=== PATIENT | male | born 1945 | race Caucasian/White ===

== ENCOUNTER 2018-02-06 13:27 | Emergency (ER) | payer MEDICARE, SELFPAY ==
[2018-02-06] VITALS (10 sets, daily range): BP systolic 110–140; BP diastolic 60–99; PULSE 72–89; RESP 14–22; TEMP 36.7–36.9; O2SAT 98–100
--- NOTE | 2018-02-06 | PATH_ITS ---
Note [facility] Accession Number: [id number] TESTS RESULT FLAG UNITS REF RANGE LAB Clinician Provided Cytology Information No. of containers..01 Other (Miscellaneous) 01 ABDOMINAL FLUID DIAGNOSIS: 02 ABDOMINAL FLUID NEGATIVE FOR MALIGNANT CELLS. MESOTHELIAL CELLS ARE PRESENT. Pathologist ICD10: 02 R18.8 02 Gonzalo Vuong MD, Pathologist NPI- [id number] Ruben Dubon, Grid Trimmer ([facility]) 01 15 CC, YELLOW, CLEAR /LCS FLAG LEGEND: L-Low Normal,H-High Normal,LL-Alert Low,HH-Alert High <-Panic Low,>-Panic High,A-Abnormal,AA-Critical Abnormal Performed at: 01 =Z [facility] [address], [place] [address] Sujit Suggs MD, 02 LWA [facility] [address] [place] [phone] Daniel Black MD, Performed at: 01 [facility] [address], [place], [place] [id number] MD Sujit Suggs MD Phone: [phone]
[2018-02-06 14:10] LABS: Add Manual Diff / Slide Review NO; Basophils Percent Auto 0.7 % (0-2); Eosinophils Percent Auto 1.9 % (2-4); Hematocrit 37.9 % (41-53); Hemoglobin 12.7 g/dL (13.5-17.5); Lymphocytes Percent Auto 15.8 % (25-40); Mean Corpuscular HGB Conc 33.4 % (30-36); Mean Corpuscular Hemoglobin 38.9 PG (26-34); Mean Corpuscular Volume 116.4 fL (80-100); Neutrophils Absolute Auto 6700 /uL (3000-5900); Neutrophils Percent Auto 63.6 % (50-75); Platelet Count 308 X10^3/uL (150-400); Red Blood Cell Count 3.26 X10^6/uL (4.5-5.9); Red Cell Distribution Width 14.6 % (11.6-14.8); White Blood Cell Count 10.6 X10^3/uL (4.5-11.0)
[2018-02-06 14:13] LABS: INR 1.5 (0.9-1.3); Prothrombin Time 15.8 SECONDS (10.1-12.7)
[2018-02-06 14:15] LABS: PTT Partial Thromboplastin Tim 33 SECONDS (26.4-36.2)
[2018-02-06 14:18] LABS: Alanine Aminotransferase 42 IU/L (21-72); Albumin 2.9 g/dL (3.5-5.0); Albumin Globulin Ratio 0.8 (1.0-2.8); Alkaline Phosphatase 223 U/L (38-126); Aspartate Aminotransferase 134 IU/L (17-59); Bilirubin Total 6.1 mg/dL (0.2-1.3); Blood Urea Nitrogen 6 mg/dL (9-20); Calcium 8.8 mg/dL (8.4-10.2); Carbon Dioxide 24 mmol/L (22-32); Chloride 97 mmol/L (98-107); Estimated Glomerular Filt Rate > 60.0 mL/min (>60); Globulin 3.7 g/dL (1.7-4.1); Glucose 107 mg/dL (80-110); HEMOLYSIS < 15 (0-50); Lipase 143 U/L (23-300); Potassium 3.7 mmol/L (3.4-5.1); Sodium 132 mmol/L (137-145); Total Protein 6.6 g/dL (6.3-8.2)
[2018-02-06 14:25] LABS: Macrocytosis 3+
--- NOTE | 2018-02-06 14:27 | ED.ABDPAIN ---
HPI - Abdominal Pain General Chief Complaint: Abdominal Pain Stated Complaint: INFLATED STOMACH/R TESTICLE Time Seen by Provider: 02/06/18 13:45 Source: patient and family Mode of arrival: ambulatory Limitations: no limitations History of Present Illness HPI narrative: Patient presents to the ED with his and a chief complaint of worsening abdominal distention in the absence of pain, yellowing of his eyes, and ongoing swollen right testicle for 6-7 weeks. Patient denies fever nor chills, he is not dizzy but is weak and has decreased appetite. Patient states the abdominal distension and yellowing has happened over the past week. He has a longstanding history of alcohol abuse but denies any known diagnosis of cirrhosis, liver failure or gallbladder disease. MD complaint: abdominal pain Related Data Home Medications Medication Instructions Recorded Confirmed aspirin 81 mg PO DAILY 02/06/18 02/06/18 atorvastatin 10 mg PO DAILY 02/06/18 02/06/18 lisinopril 40 mg PO DAILY 02/06/18 02/06/18 metoprolol succinate 50 mg PO DAILY 02/06/18 02/06/18 Previous Rx's Medication Instructions Recorded lorazepam [Ativan] See Label Instructions .ROUTE 02/06/18 .COMPLEX PRN #19 tab Allergies Allergy/AdvReac Type Severity Reaction Status Date / Time codeine Allergy Intermediate Wheezing Verified 02/06/18 14:03 Review of Systems Review of Systems All systems reviewed & are unremarkable except as noted in HPI and below Constitutional Denies chills, Denies fever(s), Denies lethargy, Denies weakness and Reports weight loss Eyes Denies change in vision, Denies eye discharge, Denies irritation and Denies loss of vision ENT Ears, Nose, Mouth, and Throat: Denies change in voice, Denies neck pain and Denies sore throat Cardiovascular Denies chest pain, Denies irregular heart rhythm, Denies lightheadedness, Denies palpitations, Reports dyspnea, Denies dyspnea on exertion and Denies orthopnea Respiratory Denies cough, Reports dyspnea, Denies dyspnea on exertion and Denies wheezing Gastrointestinal Gastrointestinal: Denies abdominal pain, Reports bloating, Denies change in bowel habits, Denies diarrhea, Denies nausea and Denies vomiting Genitourinary Denies hematuria, Denies flank pain, Denies urinary incontinence and Denies urinary urgency Comments: Scrotal swelling Musculoskeletal Denies neck pain Integumentary/Breasts Denies pruritus, Denies erythema, Denies rash, Denies wounds and Reports jaundice Neurologic Denies confusion, Denies loss of vision and Denies weakness Psychiatric Denies anxiety, Denies confusion, Denies depression, Denies homicidal ideation and Denies suicidal ideation Endocrine Denies palpitations Hematologic/Lymphatic Denies easy bruising Allergic/Immunologic Denies wheezing PFSH Medical History Alcoholism (Acute) Diverticulitis (Acute) High cholesterol (Acute) Hypertension (Acute) Melanoma (Acute) Osteoporosis (Acute) Pancreatic cancer (Acute) Prostate CA (Acute) Social History Smoking Status: Former smoker Exam Narrative Exam Narrative: 72-year-old male chronically ill and in mild distress Initial Vital Signs Initial Vital Signs: Vital Signs Temperature 98.1 F 02/06/18 13:36 Pulse Rate 86 02/06/18 13:36 Respiratory Rate 18 02/06/18 13:36 Blood Pressure 140/81 H 02/06/18 13:36 Pulse Oximetry 100 02/06/18 13:36 Const General: in distress Nutritional Appearance: cachectic and malnourished Orientation: alert, awake and oriented x3 HENMT Head: atraumatic and other (Temporal wasting) Ears: external ears normal and TM's normal bilaterally Nose: external nose normal and No nasal discharge Face and sinus: sinuses nontender, face symmetric, no sinus tenderness and No dry mucous membranes Mouth: oral mucosae normal and moist mucous membranes Teeth and gingiva: dentition normal Throat: tonsils normal and uvula midline Eyes General: appearance normal, both eyes and all related structures Visual Rodriguez: normal visual rodriguez by confrontation Eyelids: eyelids normal Sclera: scleral abnormality (Jaundice bilaterally) Pupils: PERRL Chest Chest: normal inspection of the chest Resp Effort & Inspection: normal respiratory effort, able to speak in complete sentences, no respiratory distress and no use of accessory muscles Auscultation: clear to auscultation bilaterally, no rales, no rhonchi and no wheezes Cardio Rate: regular rate Rhythm: regular rhythm Heart Sounds: no click, no gallops, no murmurs and no rubs Pulses: normal peripheral pulses GI Inspection: distended (With fluid wave) Percussion: fluid wave Scrotum: edematous and hydrocele Back/Spine/Pelvis Back: No CVA tenderness Cervical Spine: cervical ROM normal and No pain with cervical ROM Thoracic/Lumbar Spine: thoracic and lumbar spine normal to inspection Neuro General: alert, awake and oriented x3 Cognition: normal cognition Speech: speech normal Extrem General: full ROM, no clubbing, cyanosis or edema, no pedal edema and no calf tenderness Course Orders Ordered: ED Orders 02/06/18 13:25 Complete Blood Count AUTO DIFF Stat Comprehensive Metabolic Panel Stat Lipase Stat Partial Thromboplastin Time Stat Prothrombin Time INR Stat 02/06/18 14:20 Lactate (Lactic Acid) Stat 02/06/18 15:08 US abdomen complete Stat US scrotum Stat 02/06/18 16:30 US paracentesis Stat 02/06/18 18:00 Albumin Body Fluid Stat Ammonia (NH3) Stat Amylase Body Fluid Stat Cell Count w Diff Body Fluid Stat LDH Body Fluid Stat 02/06/18 19:08 Lactate 4HR (Lactic Acid Rflx) Stat 02/06/18 19:20 Urinalysis and Microscopic Stat 02/06/18 19:29 Body Fluid Culture Stat Discontinued Medications Sodium Chloride (Normal Saline 0.9%) 500 mls @ 1,000 mls/hr IV BOLUS ONE Stop: 02/06/18 19:53 Last Admin: 02/06/18 19:29 Dose: 1,000 mls/hr Reevaluation(s) Reevaluation #1: Patient was sent to ultrasound to have an ultrasound-guided paracentesis by Radiology. 5 L of fluid were removed and on his returned the patient felt tremendous improvement in his abdominal discomfort and ability to breathe. Consultations Consultation #1: Patient has had healthcare provided at [facility] in [place] in the past and requested I talk with GI or hepatology therefore follow-up. I spoke with the on-call nurses' registry director this evening whom suggest the patient contact the hepatology Clinic tomorrow and suggests [phone] Vital Signs - 8 hr 02/06/18 13:36 02/06/18 14:01 02/06/18 14:33 Temperature 98.1 F Pulse Rate 86 84 72 Respiratory Rate 18 22 14 Blood Pressure 140/81 H Blood Pressure [Left Arm] 130/76 H 117/63 Pulse Oximetry 100 99 98 02/06/18 15:15 02/06/18 16:06 02/06/18 16:30 Temperature Pulse Rate 85 89 86 Respiratory Rate 14 14 Blood Pressure Blood Pressure [Left Arm] 110/99 H 132/70 H 127/69 H Pulse Oximetry 99 98 99 02/06/18 17:30 02/06/18 18:00 02/06/18 19:30 Temperature Pulse Rate 84 89 89 Respiratory Rate Blood Pressure Blood Pressure [Left Arm] 137/73 H 120/67 126/64 H Pulse Oximetry 100 100 100 MDM - Abdominal Pain Differential Diagnosis Differential diagnosis: Likely abdominal pain, gastroenteritis, pancreatitis, small bowel obstruction and other (Ascites) Medical Records Attestation: I reviewed the patient's medical records. Lab Data Attestation: I reviewed the patient's lab results. Result diagrams: 02/06/18 13:25 02/06/18 13:25 Lab Results 02/06/18 02/06/18 02/06/18 Range/Units 13:25 13:25 13:25 WBC 10.6 (4.5-11.0) X10^3/uL RBC 3.26 L (4.5-5.9) X10^6/uL Hgb 12.7 L (13.5-17.5) g/dL Hct 37.9 L (41-53) % MCV 116.4 H (80-100) fL MCH 38.9 H (26-34) PG MCHC 33.4 (30-36) % RDW 14.6 (11.6-14.8) % Plt Count 308 (150-400) X10^3/uL Neut % (Auto) 63.6 (50-75) % Lymph % (Auto) 15.8 L (25-40) % [place] % (Auto) 18.0 H (3-14) % Eos % (Auto) 1.9 L (2-4) % Baso % (Auto) 0.7 (0-2) % Neut # (Auto) 6700 H (6506-9772) /uL RBC Morphology Not Reportable Macrocytosis 3+ H PT 15.8 H (10.1-12.7) SECONDS INR 1.5 H (0.9-1.3) APTT 33 (26.4-36.2) SECONDS Sodium 132 L (137-145) mmol/L Potassium 3.7 (3.4-5.1) mmol/L Chloride 97 L (98-107) mmol/L Carbon Dioxide 24 (22-32) mmol/L BUN 6 L (9-20) mg/dL Creatinine 0.60 L (0.66-1.25) mg/dL Estimated GFR > 60.0 (>60) mL/min BUN/Creatinine Ratio 10.0 (6-22) Glucose 107 (80-110) mg/dL Lactate (0.7-2.1) mmol/L Calcium 8.8 (8.4-10.2) mg/dL Total Bilirubin 6.1 H (0.2-1.3) mg/dL AST 134 H (17-59) IU/L ALT 42 (21-72) IU/L Alkaline Phosphatase 223 H (38-126) U/L Ammonia (9-30) umol/L Total Protein 6.6 (6.3-8.2) g/dL Albumin 2.9 L (3.5-5.0) g/dL Globulin 3.7 (1.7-4.1) g/dL Albumin/Globulin Ratio 0.8 L (1.0-2.8) Lipase 143 (23-300) U/L Urine Color Urine Appearance Urine pH (4.5-8.0) Ur Specific [place] (1.000-1.035) Urine Protein (Negative) Urine Glucose (UA) (Normal) g/dL Urine Ketones (NEGATIVE) Urine Occult Blood (Negative) Urine Nitrate (Negative) Urine Bilirubin (NEGATIVE) Urine Urobilinogen (0.2) E.U./dL Ur Leukocyte Esterase (NEGATIVE) Fluid Color Fluid Appearance Fluid RBC /uL Fld Tot Nucleated Cell /uL Fluid Polynuclear WBCs % Fluid Mononuclear WBCs % Fluid Eosinophils % Body Fluid Clot Fluid Albumin g/dL Fluid LDH U/L Fluid Amylase IU/L 02/06/18 02/06/18 02/06/18 Range/Units 14:20 18:00 18:00 WBC (4.5-11.0) X10^3/uL RBC (4.5-5.9) X10^6/uL Hgb (13.5-17.5) g/dL Hct (41-53) % MCV (80-100) fL MCH (26-34) PG MCHC (30-36) % RDW (11.6-14.8) % Plt Count (150-400) X10^3/uL Neut % (Auto) (50-75) % Lymph % (Auto) (25-40) % [place] % (Auto) (3-14) % Eos % (Auto) (2-4) % Baso % (Auto) (0-2) % Neut # (Auto) (4062-8298) /uL RBC Morphology Macrocytosis PT (10.1-12.7) SECONDS INR (0.9-1.3) APTT (26.4-36.2) SECONDS Sodium (137-145) mmol/L Potassium (3.4-5.1) mmol/L Chloride (98-107) mmol/L Carbon Dioxide (22-32) mmol/L BUN (9-20) mg/dL Creatinine (0.66-1.25) mg/dL Estimated GFR (>60) mL/min BUN/Creatinine Ratio (6-22) Glucose (80-110) mg/dL Lactate 3.4 H (0.7-2.1) mmol/L Calcium (8.4-10.2) mg/dL Total Bilirubin (0.2-1.3) mg/dL AST (17-59) IU/L ALT (21-72) IU/L Alkaline Phosphatase (38-126) U/L Ammonia (9-30) umol/L Total Protein (6.3-8.2) g/dL Albumin (3.5-5.0) g/dL Globulin (1.7-4.1) g/dL Albumin/Globulin Ratio (1.0-2.8) Lipase (23-300) U/L Urine Color Urine Appearance Urine pH (4.5-8.0) Ur Specific [place] (1.000-1.035) Urine Protein (Negative) Urine Glucose (UA) (Normal) g/dL Urine Ketones (NEGATIVE) Urine Occult Blood (Negative) Urine Nitrate (Negative) Urine Bilirubin (NEGATIVE) Urine Urobilinogen (0.2) E.U./dL Ur Leukocyte Esterase (NEGATIVE) Fluid Color Yellow Fluid Appearance Clear Fluid RBC < 100 /uL Fld Tot Nucleated Cell 311 /uL Fluid Polynuclear WBCs 6 % Fluid Mononuclear WBCs 82 % Fluid Eosinophils 0 % Body Fluid Clot No clots present Fluid Albumin < 1.0 g/dL Fluid LDH 189 U/L Fluid Amylase < 30 IU/L 02/06/18 02/06/18 02/06/18 Range/Units 18:00 19:08 19:20 WBC (4.5-11.0) X10^3/uL RBC (4.5-5.9) X10^6/uL Hgb (13.5-17.5) g/dL Hct (41-53) % MCV (80-100) fL MCH (26-34) PG MCHC (30-36) % RDW (11.6-14.8) % Plt Count (150-400) X10^3/uL Neut % (Auto) (50-75) % Lymph % (Auto) (25-40) % [place] % (Auto) (3-14) % Eos % (Auto) (2-4) % Baso % (Auto) (0-2) % Neut # (Auto) (5549-9315) /uL RBC Morphology Macrocytosis PT (10.1-12.7) SECONDS INR (0.9-1.3) APTT (26.4-36.2) SECONDS Sodium (137-145) mmol/L Potassium (3.4-5.1) mmol/L Chloride (98-107) mmol/L Carbon Dioxide (22-32) mmol/L BUN (9-20) mg/dL Creatinine (0.66-1.25) mg/dL Estimated GFR (>60) mL/min BUN/Creatinine Ratio (6-22) Glucose (80-110) mg/dL Lactate 1.6 (0.7-2.1) mmol/L Calcium (8.4-10.2) mg/dL Total Bilirubin (0.2-1.3) mg/dL AST (17-59) IU/L ALT (21-72) IU/L Alkaline Phosphatase (38-126) U/L Ammonia < 9.0 L (9-30) umol/L Total Protein (6.3-8.2) g/dL Albumin (3.5-5.0) g/dL Globulin (1.7-4.1) g/dL Albumin/Globulin Ratio (1.0-2.8) Lipase (23-300) U/L Urine Color [place] Urine Appearance Slightly cloudy Urine pH 5.0 (4.5-8.0) Ur Specific [place] >=1.030 H (1.000-1.035) Urine Protein 2+ H (Negative) Urine Glucose (UA) Trace (Normal) g/dL Urine Ketones 1+ H (NEGATIVE) Urine Occult Blood Trace-lysed (Negative) Urine Nitrate Positive (Negative) Urine Bilirubin 3+ H (NEGATIVE) Urine Urobilinogen 2.0 H (0.2) E.U./dL Ur Leukocyte Esterase Trace H (NEGATIVE) Fluid Color Fluid Appearance Fluid RBC /uL Fld Tot Nucleated Cell /uL Fluid Polynuclear WBCs % Fluid Mononuclear WBCs % Fluid Eosinophils % Body Fluid Clot Fluid Albumin g/dL Fluid LDH U/L Fluid Amylase IU/L Imaging Data US - abdomen: Radiologist's impression: PROCEDURE: US ABDOMEN COMPLETE INDICATIONS: new onset ascites, jaundice TECHNIQUE: Real-time scanning was performed of the abdominal and retroperitoneal organs, with image documentation. COMPARISON: None. FINDINGS: Liver: Liver has a diffusely increased echotexture which typically represents fatty infiltration; however, finding is nonspecific and other etiologies including hepatic cirrhosis can have a similar appearance. Please correlate with clinical and laboratory findings. Gallbladder: Tumefactive sludge noted in the gallbladder. No gallbladder wall thickening. No pericholecystic fluid. No sonographic Liang sign. Biliary ducts: Intrahepatic bile ducts are non-dilated. Extrahepatic bile duct is obscured by bowel gas and cannot be evaluated. Pancreas: Obscured by bowel gas and cannot be evaluated. Spleen: Obscured by bowel gas and cannot be evaluated Kidneys: Kidneys are normal in size and echotexture. Right kidney measures 10.7 cm long; left kidney measures 11.2 cm long. No hydronephrosis or nephrolithiasis. No solid masses. Aorta: Not visualized secondary to bowel gas and cannot be evaluated. Iliacs: Obscured by bowel gas and cannot be evaluated IVC: Obscured by bowel gas and cannot be evaluated Miscellaneous: Large amount of free fluid noted in all 4 quadrants of the abdomen. There is a 6.1 x 2.7 x 2.5 cm solid peritoneal wall mass. IMPRESSION: 1. Large amount of ascites. 2. Echogenic liver. Finding typically represents fatty infiltration; however, finding is nonspecific and correlation with clinical and laboratory findings is recommended to exclude other etiologies including hepatic cirrhosis. 3. 6.1 x 2.7 x 3.5 cm peritoneal wall mass. Recommend CT scan of the abdomen and pelvis with contrast for further evaluation. 4. Nonvisualization of the extrahepatic biliary tree, the pancreas, the spleen, the iliac vasculature, the aorta and the intrahepatic IVC secondary to bowel gas. Dictated by: Nadia Baron MD, PhD on 02/06/2018 at 16:54 Approved by: Nadia Baron MD, PhD on 02/06/2018 at 17:00 PROCEDURE: US PARACENTESIS INDICATIONS: 72 year-old male with ascites. TECHNIQUE: The indications, alternatives, benefits, risks, and complications of the procedure were explained to the patient. Written informed consent was obtained and placed in the chart. The abdomen and pelvis were examined sonographically, and an appropriate site was chosen for paracentesis. The skin was prepared and draped in the usual sterile fashion, and 1% lidocaine was infiltrated from the skin down through the peritoneal surface. A 19-gauge catheter-covered needle was then introduced into the peritoneal space, the catheter was advanced and the needle was withdrawn, and thereafter peritoneal fluid was withdrawn. The catheter was then removed and a dressing was applied. The fluid was discarded if the clinician did not order diagnostic testing of the fluid. COMPARISON: [facility], , US ABDOMEN COMPLETE, 02/06/2018, 16:16. FINDINGS: Access site: Right lower quadrant. Needle: One-Step centesis catheter with introducer needle. Fluid volume and description: 5 L of clear yellow fluid. Fluid sent for diagnostic testing: As ordered by referring clinician. Medications: 1% lidocaine for local anaesthesia. Complications: None. IMPRESSION: Successful ultrasound-guided diagnostic and therapeutic paracentesis. Dictated by: Brenton Gomes M.D. on 02/06/2018 at 17:48 Approved by: Brenton Gomes M.D. on 02/06/2018 at 17:49 US - Testicular: Radiologist's impression: PROCEDURE: US SCROTUM INDICATIONS: painful swollen testicle x7 weeks TECHNIQUE: Real-time scanning was performed of the scrotum and testicles, with image documentation. Color and pulse Doppler interrogation was performed of both testicles. COMPARISON: None. FINDINGS: Right: Testicle is normal in size at 3.7 x 1.8 x 1.7 cm, and homogenous in echotexture. Epididymis is normal in overall size and morphology. Large hydrocele noted. No varicoceles. Overlying scrotal skin is normal in thickness. Left: Testicle is normal in size at 3.2 x 1.4 x 2.1 cm, and homogeneous in echotexture. Epididymis is normal in overall size and morphology. No hydrocele or varicoceles. Overlying scrotal skin is normal in thickness. Doppler: Color and pulse Doppler demonstrate normal and symmetric arterial flow in both testicles. IMPRESSION: 1. No evidence of testicular torsion. Please note intermittent testicular torsion cannot be excluded by imaging. 2. Large right hydrocele. Dictated by: Nadia Baron MD, PhD on 02/06/2018 at 16:48 Approved by: Nadia Baron MD, PhD on 02/06/2018 at 16:49 Discharge Plan Departure Patient Disposition: Home, Self-Care Clinical Impression: Ascites Instructions: DI for Acute Liver Failure Activity Restrictions/Additional Instructions: *You have been diagnosed with [ acute liver failure with ascites ] *What to do: *Take medications as directed *Call the [facility]atology Clinic tomorrow for appointment [phone] *Return to ER if you should have any new, worsening or concerning symptoms Prescriptions: New lorazepam [Ativan] 1 mg tablet See Label Instructions .ROUTE .COMPLEX PRN (Reason: alcohol withdrawal) Qty: 19 RF: 0 No Action atorvastatin 10 mg Tablet 10 mg PO DAILY RF: 0 metoprolol succinate 50 mg Tablet Extended Release 24 Hr 50 mg PO DAILY RF: 0 aspirin 81 mg Tablet,Chewable 81 mg PO DAILY RF: 0 lisinopril 40 mg Tablet 40 mg PO DAILY RF: 0
[2018-02-06 14:41] LABS: Lactate (Lactic Acid) 3.4 mmol/L (0.7-2.1)
--- NOTE | 2018-02-06 15:08 | DI.US.S_ITS ---
PROCEDURE: US SCROTUM INDICATIONS: painful swollen testicle x7 weeks TECHNIQUE: Real-time scanning was performed of the scrotum and testicles, with image documentation. Color and pulse Doppler interrogation was performed of both testicles. COMPARISON: None. FINDINGS: Right: Testicle is normal in size at 3.7 x 1.8 x 1.7 cm, and homogenous in echotexture. Epididymis is normal in overall size and morphology. Large hydrocele noted. No varicoceles. Overlying scrotal skin is normal in thickness. Left: Testicle is normal in size at 3.2 x 1.4 x 2.1 cm, and homogeneous in echotexture. Epididymis is normal in overall size and morphology. No hydrocele or varicoceles. Overlying scrotal skin is normal in thickness. Doppler: Color and pulse Doppler demonstrate normal and symmetric arterial flow in both testicles. IMPRESSION: 1. No evidence of testicular torsion. Please note intermittent testicular torsion cannot be excluded by imaging. 2. Large right hydrocele. Dictated by: Nadia Baron MD, PhD on 02/06/2018 at 16:48 Approved by: Nadia Baron MD, PhD on 02/06/2018 at 16:49
--- NOTE | 2018-02-06 15:08 | DI.US.S_ITS ---
PROCEDURE: US ABDOMEN COMPLETE INDICATIONS: new onset ascites, jaundice TECHNIQUE: Real-time scanning was performed of the abdominal and retroperitoneal organs, with image documentation. COMPARISON: None. FINDINGS: Liver: Liver has a diffusely increased echotexture which typically represents fatty infiltration; however, finding is nonspecific and other etiologies including hepatic cirrhosis can have a similar appearance. Please correlate with clinical and laboratory findings. Gallbladder: Tumefactive sludge noted in the gallbladder. No gallbladder wall thickening. No pericholecystic fluid. No sonographic Liang sign. Biliary ducts: Intrahepatic bile ducts are non-dilated. Extrahepatic bile duct is obscured by bowel gas and cannot be evaluated. Pancreas: Obscured by bowel gas and cannot be evaluated. Spleen: Obscured by bowel gas and cannot be evaluated Kidneys: Kidneys are normal in size and echotexture. Right kidney measures 10.7 cm long; left kidney measures 11.2 cm long. No hydronephrosis or nephrolithiasis. No solid masses. Aorta: Not visualized secondary to bowel gas and cannot be evaluated. Iliacs: Obscured by bowel gas and cannot be evaluated IVC: Obscured by bowel gas and cannot be evaluated Miscellaneous: Large amount of free fluid noted in all 4 quadrants of the abdomen. There is a 6.1 x 2.7 x 2.5 cm solid peritoneal wall mass. IMPRESSION: 1. Large amount of ascites. 2. Echogenic liver. Finding typically represents fatty infiltration; however, finding is nonspecific and correlation with clinical and laboratory findings is recommended to exclude other etiologies including hepatic cirrhosis. 3. 6.1 x 2.7 x 3.5 cm peritoneal wall mass. Recommend CT scan of the abdomen and pelvis with contrast for further evaluation. 4. Nonvisualization of the extrahepatic biliary tree, the pancreas, the spleen, the iliac vasculature, the aorta and the intrahepatic IVC secondary to bowel gas. Dictated by: Nadia Baron MD, PhD on 02/06/2018 at 16:54 Approved by: Nadia Baron MD, PhD on 02/06/2018 at 17:00
--- NOTE | 2018-02-06 15:34 | PC.NURSE ---
Spoke w/ [facility]: having difficulty faxing information: Labs 02/01: Ammonia: 160 Folate 3.5 AST 112 ALT 31 ALK PHOS 224 T. Bili 5.1 Albumin 2.8
--- NOTE | 2018-02-06 16:30 | DI.US.S_ITS ---
PROCEDURE: US PARACENTESIS INDICATIONS: 72 year-old male with ascites. TECHNIQUE: The indications, alternatives, benefits, risks, and complications of the procedure were explained to the patient. Written informed consent was obtained and placed in the chart. The abdomen and pelvis were examined sonographically, and an appropriate site was chosen for paracentesis. The skin was prepared and draped in the usual sterile fashion, and 1% lidocaine was infiltrated from the skin down through the peritoneal surface. A 19-gauge catheter-covered needle was then introduced into the peritoneal space, the catheter was advanced and the needle was withdrawn, and thereafter peritoneal fluid was withdrawn. The catheter was then removed and a dressing was applied. The fluid was discarded if the clinician did not order diagnostic testing of the fluid. COMPARISON: [facility], [place], US ABDOMEN COMPLETE, 02/06/2018, 16:16. FINDINGS: Access site: Right lower quadrant. Needle: One-Step centesis catheter with introducer needle. Fluid volume and description: 5 L of clear yellow fluid. Fluid sent for diagnostic testing: As ordered by referring clinician. Medications: 1% lidocaine for local anaesthesia. Complications: None. IMPRESSION: Successful ultrasound-guided diagnostic and therapeutic paracentesis. Dictated by: Brenton Gomes M.D. on 02/06/2018 at 17:48 Approved by: Brenton Gomes M.D. on 02/06/2018 at 17:49
[2018-02-06 18:05] LABS: Body Fluid Tot Nucleated Cells 311 /uL
[2018-02-06 18:06] LABS: Body Fluid Red Blood Cells < 100 /uL
[2018-02-06 18:11] LABS: Albumin Body Fluid < 1.0 g/dL; Amylase Body Fluid < 30 IU/L; LDH Body Fluid 189 U/L
[2018-02-06 18:20] LABS: Reflexed Lactate in 2 Hours Y
[2018-02-06 18:27] LABS: Ammonia (NH3) < 9.0 umol/L (9-30)
[2018-02-06] MEDS: SODIUM CHLORIDE 0.9% 500 ML 1000 ML IV (19:29)
[2018-02-06 19:33] LABS: Lactate 2HR (Lactic Acid Rflx) 1.6 mmol/L (0.7-2.1)
[2018-02-06 19:34] LABS: Bacteria Urine None Seen
[2018-02-06 19:46] LABS: Body Fluid Appearance CLEAR; Body Fluid Clotted? NO CLOTS PRESENT; Body Fluid Color YELLOW
[2018-02-06 19:49] LABS: Eosinophils Body Fluid 0 %; Mononuclear WBC Body Fluid 82 %; Other Cells Body Fluid 12 %; Polynuclear WBC Body Fluid 6 %
[2018-02-06 20:01] LABS: Bilirubin Urine UA 3+ (NEGATIVE); Glucose Urine UA TRACE g/dL (Normal); Ketones Urine UA 1+ (NEGATIVE); Leukocyte Esterase Urine UA TRACE (NEGATIVE); Nitrite Urine UA POSITIVE (Negative); Occult Blood Urine UA TRACE-LYSED (Negative); Protein Urine UA 2+ (Negative); Specific Gravity Urine UA >=1.030 (1.000-1.035)
[2018-02-06 20:04] LABS: Appearance Urine UA Slightly Cloudy; Color Urine UA Amber
[2018-02-06 20:09] LABS: Hyaline Casts Urine 1-5/LPF; RBC Urine 1-5/HPF (0-5/HPF); Squamous Epithelial Cell Urine 1-5 /HPF; WBC Urine 1-5/HPF (0-5/HPF)
[2018-02-06 20:10] LABS: Culture Indicated Urine Specimen Cultured; Mucus Urine 2+ (Negative)
[2018-02-06 20:15] LABS: Ictotest Urine Positive (Negative)
== END 2018-02-06 20:19 | disposition home or self-care (01) ==
PROVIDERS: Emergency Provider Emergency Medicine
DX: R18.8 Other ascites (principal)
CPT/HCPCS: 36415; 49083; 76700; 76870; 80053; 81001; 82042; 82140; 82150; 83605; 83615; 83690; 85025; 85610; 85730; 87070; 87075; 87086; 87205; 89051; 99283

== ENCOUNTER 2018-02-13 10:34 | Emergency (ER) | payer MEDICARE, SELFPAY ==
--- NOTE | 2018-02-13 10:42 | ED.ABDPAIN ---
HPI - Abdominal Pain General Chief Complaint: Abdominal Pain Stated Complaint: NEEDS STOMACH DEFLATED Time Seen by Provider: 02/13/18 10:41 Source: patient Mode of arrival: ambulatory Limitations: no limitations History of Present Illness HPI narrative: 72-year-old male here for evaluation of a distended abdomen. Patient was seen here approximately 1 week ago and had an ultrasound-guided paracentesis done by Radiology. At that time the ER provider talk to GI who stated that they would see him. The patient was given the contact numbers. They state that they did contact GI at [facility] however they were unable to be seen until a referral was placed in. They been unable to talk with her primary doctor for this because the primary doctor's been on vacation. Apparently this primary doctors back in the office today. Patient arrived back in today because he feels like his abdomen is distended. He states that it is not as bad as it was 1 week ago. Does have some short of breath with exercise and was sitting up however not as bad as 1 week ago. No fevers. Related Data Home Medications Medication Instructions Recorded Confirmed aspirin 81 mg PO DAILY 02/06/18 02/13/18 atorvastatin 10 mg PO DAILY 02/06/18 02/13/18 lisinopril 40 mg PO DAILY 02/06/18 02/13/18 metoprolol succinate 50 mg PO DAILY 02/06/18 02/13/18 Previous Rx's Medication Instructions Recorded lorazepam [Ativan] See Label Instructions .ROUTE 02/06/18 .COMPLEX PRN #19 tab Allergies Allergy/AdvReac Type Severity Reaction Status Date / Time codeine Allergy Intermediate Wheezing Verified 02/06/18 14:03 Review of Systems Constitutional Reports fatigue, Denies fever(s) and Denies headache(s) ENT Ears, Nose, Mouth, and Throat: Denies headache(s) Cardiovascular Reports dyspnea on exertion Respiratory Reports dyspnea on exertion Gastrointestinal Gastrointestinal: Denies abdominal pain Comments: Distended abdomen Genitourinary Denies dysuria and Denies flank pain Musculoskeletal Denies myalgias and Denies arthralgias Integumentary/Breasts Denies lesions, Denies rash and Denies wounds Neurologic Denies confusion and Denies headache(s) Psychiatric Denies confusion Endocrine Reports fatigue Hematologic/Lymphatic Denies easy bleeding and Denies easy bruising [facility] Medical History Alcoholism (Acute) Diverticulitis (Acute) High cholesterol (Acute) Hypertension (Acute) Melanoma (Acute) Osteoporosis (Acute) Pancreatic cancer (Acute) Prostate CA (Acute) Social History Smoking Status: Former smoker Exam Initial Vital Signs Initial Vital Signs: Vital Signs Temperature 97.6 F 02/13/18 10:50 Pulse Rate 80 02/13/18 10:50 Respiratory Rate 14 02/13/18 10:50 Blood Pressure 136/67 H 02/13/18 10:50 Pulse Oximetry 98 02/13/18 10:50 Const General: cooperative and No acute distress Orientation: alert, awake and oriented x3 HENMT Head: normal to inspection and normocephalic Eyes Conjunctivae: conjunctivae normal Sclera: scleral abnormality ( jaundice) bilaterally Resp Effort & Inspection: normal respiratory effort and able to speak in complete sentences Auscultation: clear to auscultation bilaterally Cardio Rate: regular rate Rhythm: regular rhythm Pulses: radial pulses present GI Inspection: distended Palpation: soft, No firm and No tender Percussion: dullness to percussion and fluid wave Skin Lesions: no lesions Neuro General: alert, awake and oriented x3 Cognition: normal cognition Speech: speech normal Extrem General: normal to inspection and capillary refill normal Course Orders Ordered: ED Orders 02/13/18 11:01 Ammonia (NH3) Stat Basic Metabolic Panel Stat Complete Blood Count AUTO DIFF Stat Hepatic (Liver) Panel Stat Lactate (Lactic Acid) Stat Lipase Stat Partial Thromboplastin Time Stat Prothrombin Time INR Stat 02/13/18 11:28 US paracentesis Stat Vital Signs - 8 hr 02/13/18 10:50 Temperature 97.6 F Pulse Rate 80 Respiratory Rate 14 Blood Pressure 136/67 H Pulse Oximetry 98 MDM - Abdominal Pain Medical Records Attestation: I reviewed the patient's medical records. Lab Data Attestation: I reviewed the patient's lab results. Result diagrams: 02/13/18 11:01 02/13/18 11:01 Lab Results 02/13/18 02/13/18 02/13/18 Range/Units 11:01 11:01 11:01 WBC 10.5 (4.5-11.0) X10^3/uL RBC 3.25 L (4.5-5.9) X10^6/uL Hgb 12.6 L (13.5-17.5) g/dL Hct 37.5 L (41-53) % MCV 115.4 H (80-100) fL MCH 38.8 H (26-34) PG MCHC 33.7 (30-36) % RDW 14.4 (11.6-14.8) % Plt Count 327 (150-400) X10^3/uL Neut % (Auto) 72.8 (50-75) % Lymph % (Auto) 9.0 L (25-40) % [place] % (Auto) 17.1 H (3-14) % Eos % (Auto) 0.9 L (2-4) % Baso % (Auto) 0.2 (0-2) % Neut # (Auto) 7600 H (1423-7055) /uL RBC Morphology Not Reportable Macrocytosis 3+ H PT 14.2 H (10.1-12.7) SECONDS INR 1.3 (0.9-1.3) APTT 35 D (26.4-36.2) SECONDS Sodium 128 L (137-145) mmol/L Potassium 3.9 (3.4-5.1) mmol/L Chloride 93 L (98-107) mmol/L Carbon Dioxide 24 (22-32) mmol/L BUN 11 (9-20) mg/dL Creatinine 0.70 (0.66-1.25) mg/dL Estimated GFR > 60.0 (>60) mL/min BUN/Creatinine Ratio 15.7 (6-22) Glucose 130 H (80-110) mg/dL Lactate (0.7-2.1) mmol/L Calcium 9.0 (8.4-10.2) mg/dL Total Bilirubin 8.0 H (0.2-1.3) mg/dL Conjugated Bilirubin 1.9 H (0.0-0.3) md/dL Unconjugated Bilirubin 3.3 H (0.0-1.1) mg/dL AST 180 H (17-59) IU/L ALT 51 (21-72) IU/L Alkaline Phosphatase 223 H (38-126) U/L Ammonia (9-30) umol/L Total Protein 7.2 (6.3-8.2) g/dL Albumin 3.0 L (3.5-5.0) g/dL Globulin 4.2 H (1.7-4.1) g/dL Albumin/Globulin Ratio 0.7 L (1.0-2.8) Lipase 173 (23-300) U/L 02/13/18 02/13/18 Range/Units 11:01 11:01 WBC (4.5-11.0) X10^3/uL RBC (4.5-5.9) X10^6/uL Hgb (13.5-17.5) g/dL Hct (41-53) % MCV (80-100) fL MCH (26-34) PG MCHC (30-36) % RDW (11.6-14.8) % Plt Count (150-400) X10^3/uL Neut % (Auto) (50-75) % Lymph % (Auto) (25-40) % [place] % (Auto) (3-14) % Eos % (Auto) (2-4) % Baso % (Auto) (0-2) % Neut # (Auto) (3903-9799) /uL RBC Morphology Macrocytosis PT (10.1-12.7) SECONDS INR (0.9-1.3) APTT (26.4-36.2) SECONDS Sodium (137-145) mmol/L Potassium (3.4-5.1) mmol/L Chloride (98-107) mmol/L Carbon Dioxide (22-32) mmol/L BUN (9-20) mg/dL Creatinine (0.66-1.25) mg/dL Estimated GFR (>60) mL/min BUN/Creatinine Ratio (6-22) Glucose (80-110) mg/dL Lactate 3.3 H (0.7-2.1) mmol/L Calcium (8.4-10.2) mg/dL Total Bilirubin (0.2-1.3) mg/dL Conjugated Bilirubin (0.0-0.3) md/dL Unconjugated Bilirubin (0.0-1.1) mg/dL AST (17-59) IU/L ALT (21-72) IU/L Alkaline Phosphatase (38-126) U/L Ammonia 13.0 (9-30) umol/L Total Protein (6.3-8.2) g/dL Albumin (3.5-5.0) g/dL Globulin (1.7-4.1) g/dL Albumin/Globulin Ratio (1.0-2.8) Lipase (23-300) U/L Imaging Data ultrasound paracentesis: Radiologist's impression: PROCEDURE: US PARACENTESIS INDICATIONS: ASCITIES TECHNIQUE: The indications, alternatives, benefits, risks, and complications of the procedure were explained to the patient. Written informed consent was obtained and placed in the chart. The abdomen and pelvis were examined sonographically, and an appropriate site was chosen for paracentesis. The skin was prepared and draped in the usual sterile fashion, and 1% lidocaine was infiltrated from the skin down through the peritoneal surface. A 19-gauge catheter-covered needle was then introduced into the peritoneal space, the catheter was advanced and the needle was withdrawn, and thereafter peritoneal fluid was withdrawn. The catheter was then removed and a dressing was applied. The fluid was discarded if the clinician did not order diagnostic testing of the fluid. COMPARISON: [facility], PARACENTESIS, 02/06/2018, 16:53. FINDINGS: Access site: Right lower pelvis anterolateral body wall. Needle: One-Step centesis catheter with introducer needle. Fluid volume and description: 4500 cc, clear, serous. Fluid sent for diagnostic testing: Not requested Medications: 1% lidocaine for local anaesthesia. Complications: None. IMPRESSION: Successful ultrasound-guided paracentesis. Dictated by: Vidal Silva M.D. on 02/13/2018 at 12:46 MDM Narrative Medical decision making narrative: patient again here with known ascites and abdominal distention. He was sent to Interventional Radiology for ultrasound-guided paracentesis and had 4.5 L removed. Patient states he feels much better. His abdomen is less distended. He was instructed that he needed to contact his primary doctor today to get the referral to see GI. He was instructed that if he needed to return to the emergency department for further intervention in the future that he could do that. He expressed understanding and agreement with plan. Discharge Plan Departure Patient Disposition: Home, Self-Care Clinical Impression: Ascites Instructions: DI for Ascites, DI for Abdominal Paracentesis Activity Restrictions/Additional Instructions: recommend that you contact your primary care doctor today to discuss the referral to Gastroenterology. Continue all of your medications as directed. Return to the emergency department for any new or worsening symptoms Prescriptions: No Action atorvastatin 10 mg Tablet 10 mg PO DAILY RF: 0 metoprolol succinate 50 mg Tablet Extended Release 24 Hr 50 mg PO DAILY RF: 0 aspirin 81 mg Tablet,Chewable 81 mg PO DAILY RF: 0 lisinopril 40 mg Tablet 40 mg PO DAILY RF: 0 lorazepam [Ativan] 1 mg tablet See Label Instructions .ROUTE .COMPLEX PRN (Reason: alcohol withdrawal) Qty: 19 RF: 0
[2018-02-13 10:50] VITALS: BP 136/67; PULSE 80; RESP 14; TEMP 36.4; O2SAT 98
[2018-02-13 11:16] LABS: Add Manual Diff / Slide Review NO; Basophils Percent Auto 0.2 % (0-2); Eosinophils Percent Auto 0.9 % (2-4); Hematocrit 37.5 % (41-53); Hemoglobin 12.6 g/dL (13.5-17.5); Mean Corpuscular HGB Conc 33.7 % (30-36); Mean Corpuscular Hemoglobin 38.8 PG (26-34); Mean Corpuscular Volume 115.4 fL (80-100); Monocytes Percent Auto 17.1 % (3-14); Neutrophils Absolute Auto 7600 /uL (3000-5900); Neutrophils Percent Auto 72.8 % (50-75); Platelet Count 327 X10^3/uL (150-400); Red Blood Cell Count 3.25 X10^6/uL (4.5-5.9); Red Cell Distribution Width 14.4 % (11.6-14.8); White Blood Cell Count 10.5 X10^3/uL (4.5-11.0)
[2018-02-13 11:22] LABS: INR 1.3 (0.9-1.3); Prothrombin Time 14.2 SECONDS (10.1-12.7)
[2018-02-13 11:25] LABS: PTT Partial Thromboplastin Tim 35 SECONDS (26.4-36.2)
[2018-02-13 11:26] LABS: Alanine Aminotransferase 51 IU/L (21-72); Albumin Globulin Ratio 0.7 (1.0-2.8); Alkaline Phosphatase 223 U/L (38-126); Aspartate Aminotransferase 180 IU/L (17-59); BUN Creatinine Ratio 15.7 (6-22); Bilirubin Conjugated 1.9 md/dL (0.0-0.3); Bilirubin Unconjugated 3.3 mg/dL (0.0-1.1); Blood Urea Nitrogen 11 mg/dL (9-20); Carbon Dioxide 24 mmol/L (22-32); Chloride 93 mmol/L (98-107); Estimated Glomerular Filt Rate > 60.0 mL/min (>60); Globulin 4.2 g/dL (1.7-4.1); Glucose 130 mg/dL (80-110); HEMOLYSIS < 15 (0-50); Lipase 173 U/L (23-300); Potassium 3.9 mmol/L (3.4-5.1); Sodium 128 mmol/L (137-145); Total Protein 7.2 g/dL (6.3-8.2)
[2018-02-13 11:27] LABS: Lactate (Lactic Acid) 3.3 mmol/L (0.7-2.1)
--- NOTE | 2018-02-13 11:28 | DI.US.S_ITS ---
PROCEDURE: US PARACENTESIS INDICATIONS: ASCITIES TECHNIQUE: The indications, alternatives, benefits, risks, and complications of the procedure were explained to the patient. Written informed consent was obtained and placed in the chart. The abdomen and pelvis were examined sonographically, and an appropriate site was chosen for paracentesis. The skin was prepared and draped in the usual sterile fashion, and 1% lidocaine was infiltrated from the skin down through the peritoneal surface. A 19-gauge catheter-covered needle was then introduced into the peritoneal space, the catheter was advanced and the needle was withdrawn, and thereafter peritoneal fluid was withdrawn. The catheter was then removed and a dressing was applied. The fluid was discarded if the clinician did not order diagnostic testing of the fluid. COMPARISON: [facility], , PARACENTESIS, 02/06/2018, 16:53. FINDINGS: Access site: Right lower pelvis anterolateral body wall. Needle: One-Step centesis catheter with introducer needle. Fluid volume and description: 4500 cc, clear, serous. Fluid sent for diagnostic testing: Not requested Medications: 1% lidocaine for local anaesthesia. Complications: None. IMPRESSION: Successful ultrasound-guided paracentesis. Dictated by: iVdal Silva M.D. on 02/13/2018 at 12:46 Approved by: Vidal Silva M.D. on 02/13/2018 at 12:47
[2018-02-13 11:32] LABS: Macrocytosis 3+
--- NOTE | 2018-02-13 11:42 | PC.NURSE ---
to DI for peritinel tap per wc.
[2018-02-13 13:05] VITALS: BP 120/55; PULSE 88; RESP 18; O2SAT 99
[2018-02-13 15:08] LABS: Reflexed Lactate in 2 Hours Y
== END 2018-02-13 13:29 | disposition home or self-care (01) ==
PROVIDERS: Emergency Provider Emergency Medicine
DX: R18.8 Other ascites (principal)
CPT/HCPCS: 36591; 49083; 80048; 80076; 82140; 83605; 83690; 85025; 85610; 85730; 99282; 99285

== ENCOUNTER → 2018-03-02 10:44 | Outpatient (CLI) | payer MEDICARE, SELFPAY ==
--- NOTE | 2018-03-02 | DI.US.S_ITS ---
PROCEDURE: US ABDOMEN COMPLETE INDICATIONS: CIRRHOSIS TECHNIQUE: Real-time scanning was performed of the abdominal and retroperitoneal organs, with image documentation. COMPARISON: [facility], US, US PARACENTESIS, 02/13/2018, 11:50. FINDINGS: Liver: Liver is normal in size and demonstrates markedly increased echotexture. Gallbladder: The gallbladder wall measures 3 mm. There are nodular areas of increased density along the wall which may represent gallbladder sludge or high density bile. Soft tissue mass cannot be excluded although no vascularity is identified. The gallbladder itself is enlarged. Negative sonographic Liang's sign. No cholelithiasis. Biliary ducts: Intrahepatic bile ducts are non-dilated. Extrahepatic bile duct caliber measures 9 mm. Normal is 6-7 mm or less in diameter, or 10 mm or less post-cholecystectomy. Pancreas: Secured by gas. Spleen: Surgically absent. Kidneys: Kidneys are normal in size and echotexture. Right kidney measures 11.2 cm long; left kidney measures 10.3 cm long. No hydronephrosis or nephrolithiasis. No solid masses. Aorta: Obscured. Iliacs: Obscured. IVC: Obscured. Miscellaneous: Moderate ascites. IMPRESSION: 1. Moderate ascites large enough for percutaneous family history 2. Increased echogenicity material in the gallbladder likely represents inspissated bile or high density bile. A solid mass possibly representing malignancy cannot be excluded. Consider CT or MRI with and without contrast for further evaluation. The gallbladder itself is enlarged with a prominent extrahepatic bile duct. Dictated by: Ruben Perez M.D. on 03/02/2018 at 13:40 Approved by: Ruben Perez M.D. on 03/02/2018 at 13:48
== END ==
PROVIDERS: PCP Internal Medicine Critical Care Medicine; Visit Provider Internal Medicine Transplant Hepatology
DX: K74.60 Unspecified cirrhosis of liver (principal); R18.8 Other ascites
CPT/HCPCS: 76700

== ENCOUNTER 2018-03-02 11:18 | Emergency (ER) | payer MEDICARE, SELFPAY ==
[2018-03-02 11:25] VITALS: BP 131/68; PULSE 95; RESP 16; TEMP 36.2; O2SAT 99; BMI 26.2
--- NOTE | 2018-03-02 11:45 | ED.ABDPAIN ---
HPI - Abdominal Pain General Chief Complaint: Abdominal Pain Stated Complaint: 'SUCTION FOR STOMACH' Time Seen by Provider: 03/02/18 11:40 Source: patient Mode of arrival: ambulatory Limitations: no limitations History of Present Illness HPI narrative: Patient is a 72-year-old male who presents with abdominal ascites, he is had 2 paracentesis within the last 3 weeks. He is in the process of being set up for [facility] GI though he has not yet had an appointment. He feels as though his abdomen is distended but he does not have any shortness of breath he has no pain no fever. I he had an outpatient abdominal ultrasound which showed a large amount of ascites he was then sent here from the GI department for a paracentesis. Related Data Home Medications Medication Instructions Recorded Confirmed aspirin 81 mg PO DAILY 02/06/18 02/13/18 atorvastatin 10 mg PO DAILY 02/06/18 02/13/18 lisinopril 40 mg PO DAILY 02/06/18 02/13/18 metoprolol succinate 50 mg PO DAILY 02/06/18 02/13/18 Previous Rx's Medication Instructions Recorded lorazepam [Ativan] See Label Instructions .ROUTE 02/06/18 .COMPLEX PRN #19 tab Allergies Allergy/AdvReac Type Severity Reaction Status Date / Time codeine Allergy Intermediate Wheezing Verified 03/02/18 11:25 Review of Systems Review of Systems GENERAL: Denies chills, fatigue, malaise, fever, sweats, travel HEENT: Denies sinus pain, ear pain, sore throat, difficulty swallowing, neck pain RESPIRATORY: Denies dyspnea, cough, wheezing, hemoptysis, sputum. CARDIOVASCULAR: Denies chest pain, palpitations, orthopnea, edema GASTROINTESTINAL: Denies nausea, vomiting, abdominal pain, diarrhea, constipation, melena. : Denies dysuria, frequency, incontinence, hematuria, urinary retention, flank pain. MUSCULOSKELETAL: Denies weakness, joint pain, or bony pain SKIN: No rash, no erythema, no pruritus NEUROLOGIC: Denies weakness, dizziness, headache, numbness, change in speech, confusion PSYCHIATRIC: No concerning psychosocial issues. 12 point review of systems is negative except for those stated above and HPI [facility] Medical History Ascites (Acute) Alcoholism (Acute) Diverticulitis (Acute) High cholesterol (Acute) Hypertension (Acute) Melanoma (Acute) Osteoporosis (Acute) Pancreatic cancer (Acute) Prostate CA (Acute) Social History Smoking Status: Former smoker Exam Initial Vital Signs Initial Vital Signs: Vital Signs Temperature 97.1 F L 03/02/18 11:25 Pulse Rate 95 H 03/02/18 11:25 Respiratory Rate 16 03/02/18 11:25 Blood Pressure 131/68 H 03/02/18 11:25 Pulse Oximetry 99 03/02/18 11:25 GENERAL: Well-appearing, well-nourished and in no acute distress. HEENT: Head atraumatic,EOMI, pupils reactive CARDIOVASCULAR: Regular rate and rhythm without murmurs, rubs or gallops. RESPIRATORY: Breath sounds equal bilaterally, no wheezes rales or rhonchi. ABDOMEN: Distended, positive fluid wave nontender, no caput medusa EXTREMITIES: Normal range of motion, no clubbing or edema. Neurovascularly intact NEUROLOGICAL: Alert and oriented x4.Normal gait and speech. SKIN: Warm, dry, no laceration, no petechiae, no rashes or lesions. Course Orders Ordered: ED Orders 03/02/18 11:46 US paracentesis Stat 03/02/18 12:10 Complete Blood Count AUTO DIFF Stat Comprehensive Metabolic Panel Stat Partial Thromboplastin Time Stat Prothrombin Time INR Stat Vital Signs - 8 hr 03/02/18 11:25 03/02/18 12:00 03/02/18 12:40 Temperature 97.1 F L Pulse Rate 95 H 89 88 Respiratory Rate 16 18 15 Blood Pressure 131/68 H Blood Pressure [Left Arm] 112/69 118/53 L Pulse Oximetry 99 100 100 03/02/18 13:13 03/02/18 14:18 Temperature Pulse Rate 87 85 Respiratory Rate 17 15 Blood Pressure Blood Pressure [Left Arm] 109/52 L 113/68 Pulse Oximetry 100 99 MDM - Abdominal Pain Lab Data Attestation: I reviewed the patient's lab results. Result diagrams: 03/02/18 12:10 03/02/18 12:10 Lab Results 03/02/18 03/02/18 03/02/18 Range/Units 12:10 12:10 12:10 WBC 9.4 (4.5-11.0) X10^3/uL RBC 3.29 L (4.5-5.9) X10^6/uL Hgb 12.8 L (13.5-17.5) g/dL Hct 37.1 L (41-53) % MCV 112.8 H (80-100) fL MCH 39.0 H (26-34) PG MCHC 34.6 (30-36) % RDW 13.7 (11.6-14.8) % Plt Count 381 (150-400) X10^3/uL Neut % (Auto) 63.0 (50-75) % Lymph % (Auto) 20.4 L (25-40) % [place] % (Auto) 15.0 H (3-14) % Eos % (Auto) 0.9 L (2-4) % Baso % (Auto) 0.7 (0-2) % Neut # (Auto) 5900 (6850-3354) /uL RBC Morphology Not Reportable Macrocytosis 1+ H PT 15.8 H (10.1-12.7) SECONDS INR 1.4 H (0.9-1.3) APTT 32 D (26.4-36.2) SECONDS Sodium 125 L (137-145) mmol/L Potassium 4.8 (3.4-5.1) mmol/L Chloride 92 L (98-107) mmol/L Carbon Dioxide 25 (22-32) mmol/L BUN 10 (9-20) mg/dL Creatinine 0.80 (0.66-1.25) mg/dL Estimated GFR > 60.0 (>60) mL/min BUN/Creatinine Ratio 12.5 (6-22) Glucose 110 (80-110) mg/dL Calcium 9.1 (8.4-10.2) mg/dL Total Bilirubin 5.7 H (0.2-1.3) mg/dL AST 82 H (17-59) IU/L ALT 36 (21-72) IU/L Alkaline Phosphatase 202 H (38-126) U/L Total Protein 6.6 (6.3-8.2) g/dL Albumin 3.0 L (3.5-5.0) g/dL Globulin 3.6 (1.7-4.1) g/dL Albumin/Globulin Ratio 0.8 L (1.0-2.8) Imaging Data US abdomen: Radiologist's impression: PROCEDURE: US PARACENTESIS INDICATIONS: ascites TECHNIQUE: The indications, alternatives, benefits, risks, and complications of the procedure were explained to the patient. Written informed consent was obtained and placed in the chart. The abdomen and pelvis were examined sonographically, and an appropriate site was chosen for paracentesis. The skin was prepared and draped in the usual sterile fashion, and 1% lidocaine was infiltrated from the skin down through the peritoneal surface. A 19-gauge catheter-covered needle was then introduced into the peritoneal space, the catheter was advanced and the needle was withdrawn, and thereafter peritoneal fluid was withdrawn. The catheter was then removed and a dressing was applied. The fluid was discarded if the clinician did not order diagnostic testing of the fluid. COMPARISON: [facility], , US ABDOMEN COMPLETE, 03/02/2018, 11:01. [facility], , US PARACENTESIS, 02/06/2018, 16:53. FINDINGS: Access site: Right lower abdoment Needle: One-Step centesis catheter with introducer needle. Fluid volume and description: 4900 mL . Slightly cloudy Fluid sent for diagnostic testing: Not requested. Medications: 1% lidocaine for local anaesthesia. Complications: None. IMPRESSION: Successful ultrasound-guided paracentesis. Dictated by: Shy Hamm M.D. on 03/02/2018 at 14:48 Discharge Plan Departure Patient Disposition: Home, Self-Care Clinical Impression: Ascites Discharge Date/Time: 03/02/18 14:23 Interventions: ED Discharge Assessment Last Done: 03/02/18 14:22 Activity Restrictions/Additional Instructions: *You have been diagnosed with ascites *What to do: It is recommended that you have scheduled paracentesis once a month or every 2 weeks which can be arranged with either her primary care provider or your GI doctor. *Continue to take medications as directed *Follow up with your primary care provider in 2-3 days *Return to ER if you should have any new, worsening or concerning symptoms Prescriptions: No Action atorvastatin 10 mg Tablet 10 mg PO DAILY RF: 0 metoprolol succinate 50 mg Tablet Extended Release 24 Hr 50 mg PO DAILY RF: 0 aspirin 81 mg Tablet,Chewable 81 mg PO DAILY RF: 0 lisinopril 40 mg Tablet 40 mg PO DAILY RF: 0 lorazepam [Ativan] 1 mg tablet See Label Instructions .ROUTE .COMPLEX PRN (Reason: alcohol withdrawal) Qty: 19 RF: 0 Referrals: Ruben Leger MD [Primary Care Provider] -
[2018-03-02 12:00] VITALS: BP 112/69; PULSE 89; RESP 18; O2SAT 100
[2018-03-02 12:22] LABS: Add Manual Diff / Slide Review NO; Basophils Percent Auto 0.7 % (0-2); Eosinophils Percent Auto 0.9 % (2-4); Hematocrit 37.1 % (41-53); Hemoglobin 12.8 g/dL (13.5-17.5); Lymphocytes Percent Auto 20.4 % (25-40); Mean Corpuscular HGB Conc 34.6 % (30-36); Mean Corpuscular Volume 112.8 fL (80-100); Neutrophils Absolute Auto 5900 /uL (3000-5900); Platelet Count 381 X10^3/uL (150-400); Red Blood Cell Count 3.29 X10^6/uL (4.5-5.9); Red Cell Distribution Width 13.7 % (11.6-14.8); White Blood Cell Count 9.4 X10^3/uL (4.5-11.0)
[2018-03-02 12:26] LABS: INR 1.4 (0.9-1.3); Prothrombin Time 15.8 SECONDS (10.1-12.7)
[2018-03-02 12:29] LABS: PTT Partial Thromboplastin Tim 32 SECONDS (26.4-36.2)
[2018-03-02 12:32] LABS: Alanine Aminotransferase 36 IU/L (21-72); Albumin Globulin Ratio 0.8 (1.0-2.8); Alkaline Phosphatase 202 U/L (38-126); Aspartate Aminotransferase 82 IU/L (17-59); BUN Creatinine Ratio 12.5 (6-22); Bilirubin Total 5.7 mg/dL (0.2-1.3); Blood Urea Nitrogen 10 mg/dL (9-20); Calcium 9.1 mg/dL (8.4-10.2); Carbon Dioxide 25 mmol/L (22-32); Chloride 92 mmol/L (98-107); Estimated Glomerular Filt Rate > 60.0 mL/min (>60); Globulin 3.6 g/dL (1.7-4.1); Glucose 110 mg/dL (80-110); HEMOLYSIS < 15 (0-50); Potassium 4.8 mmol/L (3.4-5.1); Sodium 125 mmol/L (137-145); Total Protein 6.6 g/dL (6.3-8.2)
[2018-03-02 12:40] VITALS: BP 118/53; PULSE 88; RESP 15; O2SAT 100
[2018-03-02 12:48] LABS: Macrocytosis 1+
[2018-03-02 13:13] VITALS: BP 109/52; PULSE 87; RESP 17; O2SAT 100
[2018-03-02 14:18] VITALS: BP 113/68; PULSE 85; RESP 15; O2SAT 99
--- NOTE | 2018-03-02 15:53 | ED_ITS ---
HPI - Abdominal Pain General Chief Complaint: Abdominal Pain Stated Complaint: 'SUCTION FOR STOMACH' Time Seen by Provider: 03/02/18 11:40 Source: patient Mode of arrival: ambulatory Limitations: no limitations History of Present Illness HPI narrative: Patient is a 72-year-old male who presents with abdominal ascites , he is had 2 paracentesis within the last 3 weeks. He is in the process of being set up for [facility] though he has not yet had an appointment. He feels as though his abdomen is distended but he does not have any shortness of breath he has no pain no fever. I he had an outpatient abdominal ultrasound which showed a large amount of ascites he was then sent here from the GI department for a paracentesis. Related Data Home Medications Medication Instructions Recorded Confirmed aspirin 81 mg PO DAILY 02/06/18 02/13/18 atorvastatin 10 mg PO DAILY 02/06/18 02/13/18 lisinopril 40 mg PO DAILY 02/06/18 02/13/18 metoprolol succinate 50 mg PO DAILY 02/06/18 02/13/18 Previous Rx's Medication Instructions Recorded lorazepam [Ativan] See Label Instructions .ROUTE 02/06/18 .COMPLEX PRN #19 tab Allergies Allergy/AdvReac Type Severity Reaction Status Date / Time codeine Allergy Intermediate Wheezing Verified 03/02/18 11:25 Review of Systems Review of Systems GENERAL: Denies chills, fatigue, malaise, fever, sweats, travel HEENT: Denies sinus pain, ear pain, sore throat, difficulty swallowing, neck pain RESPIRATORY: Denies dyspnea, cough, wheezing, hemoptysis, sputum. CARDIOVASCULAR: Denies chest pain, palpitations, orthopnea, edema GASTROINTESTINAL: Denies nausea, vomiting, abdominal pain, diarrhea, constipation, melena. : Denies dysuria, frequency, incontinence, hematuria, urinary retention, flank pain. MUSCULOSKELETAL: Denies weakness, joint pain, or bony pain SKIN: No rash, no erythema, no pruritus NEUROLOGIC: Denies weakness, dizziness, headache, numbness, change in speech, confusion PSYCHIATRIC: No concerning psychosocial issues. 12 point review of systems is negative except for those stated above and HPI [facility] Medical History Ascites (Acute) Alcoholism (Acute) Diverticulitis (Acute) High cholesterol (Acute) Hypertension (Acute) Melanoma (Acute) Osteoporosis (Acute) Pancreatic cancer (Acute) Prostate CA (Acute) Social History Smoking Status: Former smoker Exam Initial Vital Signs Initial Vital Signs: Vital Signs Temperature 97.1 F L 03/02/18 11:25 Pulse Rate 95 H 03/02/18 11:25 Respiratory Rate 16 03/02/18 11:25 Blood Pressure 131/68 H 03/02/18 11:25 Pulse Oximetry 99 03/02/18 11:25 GENERAL: Well-appearing, well-nourished and in no acute distress. HEENT: Head atraumatic,EOMI, pupils reactive CARDIOVASCULAR: Regular rate and rhythm without murmurs, rubs or gallops. RESPIRATORY: Breath sounds equal bilaterally, no wheezes rales or rhonchi. ABDOMEN: Distended, positive fluid wave nontender, no caput medusa EXTREMITIES: Normal range of motion, no clubbing or edema. Neurovascularly intact NEUROLOGICAL: Alert and oriented x4.Normal gait and speech. SKIN: Warm, dry, no laceration, no petechiae, no rashes or lesions. Course Orders Ordered: ED Orders 03/02/18 11:46 US paracentesis Stat 03/02/18 12:10 Complete Blood Count AUTO DIFF Stat Comprehensive Metabolic Panel Stat Partial Thromboplastin Time Stat Prothrombin Time INR Stat Vital Signs - 8 hr 03/02/18 11:25 03/02/18 12:00 03/02/18 12:40 Temperature 97.1 F L Pulse Rate 95 H 89 88 Respiratory Rate 16 18 15 Blood Pressure 131/68 H Blood Pressure [Left Arm] 112/69 118/53 L Pulse Oximetry 99 100 100 03/02/18 13:13 03/02/18 14:18 Temperature Pulse Rate 87 85 Respiratory Rate 17 15 Blood Pressure Blood Pressure [Left Arm] 109/52 L 113/68 Pulse Oximetry 100 99 MDM - Abdominal Pain Lab Data Attestation: I reviewed the patient's lab results. Result diagrams: 03/02/18 12:10 03/02/18 12:10 Lab Results 03/02/18 03/02/18 03/02/18 Range/Units 12:10 12:10 12:10 WBC 9.4 (4.5-11.0) X10^3/uL RBC 3.29 L (4.5-5.9) X10^6/uL Hgb 12.8 L (13.5-17.5) g/dL Hct 37.1 L (41-53) % MCV 112.8 H (80-100) fL MCH 39.0 H (26-34) PG MCHC 34.6 (30-36) % RDW 13.7 (11.6-14.8) % Plt Count 381 (150-400) X10^3/uL Neut % (Auto) 63.0 (50-75) % Lymph % (Auto) 20.4 L (25-40) % [place] % (Auto) 15.0 H (3-14) % Eos % (Auto) 0.9 L (2-4) % Baso % (Auto) 0.7 (0-2) % Neut # (Auto) 5900 (3954-1339) /uL RBC Morphology Not Reportable Macrocytosis 1+ H PT 15.8 H (10.1-12.7) SECONDS INR 1.4 H (0.9-1.3) APTT 32 D (26.4-36.2) SECONDS Sodium 125 L (137-145) mmol/L Potassium 4.8 (3.4-5.1) mmol/L Chloride 92 L (98-107) mmol/L Carbon Dioxide 25 (22-32) mmol/L BUN 10 (9-20) mg/dL Creatinine 0.80 (0.66-1.25) mg/dL Estimated GFR > 60.0 (>60) mL/min BUN/Creatinine Ratio 12.5 (6-22) Glucose 110 (80-110) mg/dL Calcium 9.1 (8.4-10.2) mg/dL Total Bilirubin 5.7 H (0.2-1.3) mg/dL AST 82 H (17-59) IU/L ALT 36 (21-72) IU/L Alkaline Phosphatase 202 H (38-126) U/L Total Protein 6.6 (6.3-8.2) g/dL Albumin 3.0 L (3.5-5.0) g/dL Globulin 3.6 (1.7-4.1) g/dL Albumin/Globulin Ratio 0.8 L (1.0-2.8) Imaging Data US abdomen: Radiologist's impression: PROCEDURE: US PARACENTESIS INDICATIONS: ascites TECHNIQUE: The indications, alternatives, benefits, risks, and complications of the procedure were explained to the patient. Written informed consent was obtained and placed in the chart. The abdomen and pelvis were examined sonographically, and an appropriate site was chosen for paracentesis. The skin was prepared and draped in the usual sterile fashion , and 1% lidocaine was infiltrated from the skin down through the peritoneal surface. A 19-gauge catheter-covered needle was then introduced into the peritoneal space, the catheter was advanced and the needle was withdrawn, and thereafter peritoneal fluid was withdrawn. The catheter was then removed and a dressing was applied. The fluid was discarded if the clinician did not order diagnostic testing of the fluid. COMPARISON: [facility], , US ABDOMEN COMPLETE, 03/02/2018, 11:01. [facility], , US PARACENTESIS, 02/06/2018, 16:53. FINDINGS: Access site: Right lower abdoment Needle: One-Step centesis catheter with introducer needle. Fluid volume and description: 4900 mL . Slightly cloudy Fluid sent for diagnostic testing: Not requested. Medications: 1% lidocaine for local anaesthesia. Complications: None. IMPRESSION: Successful ultrasound-guided paracentesis. Dictated by: Shy Hamm M.D. on 03/02/2018 at 14:48 Discharge Plan Departure Patient Disposition: Home, Self-Care Clinical Impression: Ascites Discharge Date/Time: 03/02/18 14:23 Interventions: ED Discharge Assessment Last Done: 03/02/18 14:22 Activity Restrictions/Additional Instructions: *You have been diagnosed with ascites *What to do: It is recommended that you have scheduled paracentesis once a month or every 2 weeks which can be arranged with either her primary care provider or your GI doctor. *Continue to take medications as directed *Follow up with your primary care provider in 2-3 days *Return to ER if you should have any new, worsening or concerning symptoms Prescriptions: No Action atorvastatin 10 mg Tablet 10 mg PO DAILY RF: 0 metoprolol succinate 50 mg Tablet Extended Release 24 Hr 50 mg PO DAILY RF: 0 aspirin 81 mg Tablet,Chewable 81 mg PO DAILY RF: 0 lisinopril 40 mg Tablet 40 mg PO DAILY RF: 0 lorazepam [Ativan] 1 mg tablet See Label Instructions .ROUTE .COMPLEX PRN (Reason: alcohol withdrawal) Qty : 19 RF: 0 Referrals: Ruben Leger MD [Primary Care Provider] -
== END 2018-03-02 14:23 | disposition home or self-care (01) ==
PROVIDERS: Emergency Provider Emergency Medicine; PCP Internal Medicine Critical Care Medicine
DX: R18.8 Other ascites (principal)
CPT/HCPCS: 36591; 49083; 76700; 80053; 85025; 85610; 85730; 99283; 99284

== ENCOUNTER → 2018-03-15 10:18 | Outpatient (CLI) | payer MEDICARE, SELFPAY ==
--- NOTE | 2018-03-15 | DI.CT.S_ITS ---
PROCEDURE: CT ABDOMEN WO/W CON INDICATIONS: GALL BLADDER MASS TECHNIQUE: 4 phase scanning was performed. Non-contrast 5 mm axial sections acquired from the diaphragm to the iliac crests. Following the administration of intravenous contrast, 5 mm thick arterial-phase, portal venous-phase, and 5-minute delayed phase images were acquired through the liver. 5 mm thick coronal and sagittal reformats were performed. For radiation dose reduction, the following was used: automated exposure control, adjustment of mA and/or kV according to patient size. COMPARISON: [facility], US, US ABDOMEN COMPLETE, 02/06/2018, 16:16. [facility], US, US ABDOMEN COMPLETE, 03/02/2018, 11:01. FINDINGS: Image quality: Excellent. Lung bases: Lung bases are clear. Heart size is normal. Solid organs: Liver demonstrates a heterogeneous appearance. It is noted that no focal defined mass was identified on prior ultrasound exams. Gallbladder demonstrates no appreciable wall thickening. There is faint area of slight increased enhancement within the lumen, much less prominent when compared to ultrasound of 03/02/18. Biliary system is non dilated. Pancreatic head and mid body are within normal limits. There appears to be distal resection. Spleen is normal in size and enhancement. There is an irregular left adrenal mass measuring 19 mm AP by 17 mm transverse. Similar smaller focus is noted on the right measuring 11 mm AP by 10 mm transverse. Both kidneys demonstrate normal size and enhancement, without hydronephrosis or nephrolithiasis. Nodes and vessels: No retroperitoneal or mesenteric adenopathy by size criteria. Aorta and inferior vena cava are normal in size. Bowel and peritoneum: Unenhanced bowel loops are normal in caliber. There is moderate free fluid within the visualized abdomen. In addition, Bones: There is scattered areas of poorly defined lucency within the visualized thoracic and lumbar spine. The largest is identified at L3. No vertebral body compression fractures. Miscellaneous: Ventral hernia is present. It is noted in the right lower quadrant abdominal wall mass was noted on prior ultrasound. Images do not include the pelvis on current study. IMPRESSION: 1. Bilateral adrenal masses, as above. No prior studies are available for comparison. However, given the appearance of ascites a heterogeneous appearance of the liver, malignancy cannot be excluded. Further evaluation with CT/MR with adrenal protocol or potentially PET scan is recommended. 2. Heterogeneous appearance of the liver. This could be secondary to patchy steatosis. However, other infiltrative disease cannot be definitively excluded. It is noted that no distinct masses are identified on today's study or prior ultrasound exams. 3. Prominent ascites obscuring the abdomen. Underlying masses cannot be excluded. 4. No well defined gallbladder mass is identified. 2 month ultrasound followup is recommended. 5. Nonspecific low attenuation foci within the vertebral bodies as above. This could be related to degenerative change. However, given the above findings, other etiologies such as metastatic disease cannot be definitively excluded. Further evaluation with bone scan may be helpful for additional characterization. Dictated by: Amalia Bell M.D. on 03/15/2018 at 13:23 Approved by: Amalia Bell M.D. on 03/15/2018 at 14:33
[2018-03-15 12:20] LABS: INR 1.4 (0.9-1.3); Prothrombin Time 15.2 SECONDS (10.1-12.7)
[2018-03-15 12:23] LABS: Alanine Aminotransferase 24 IU/L (21-72); Albumin 3.1 g/dL (3.5-5.0); Albumin Globulin Ratio 0.8 (1.0-2.8); Alkaline Phosphatase 203 U/L (38-126); Aspartate Aminotransferase 63 IU/L (17-59); BUN Creatinine Ratio 16.7 (6-22); Bilirubin Total 5.4 mg/dL (0.2-1.3); Blood Urea Nitrogen 15 mg/dL (9-20); Calcium 9.4 mg/dL (8.4-10.2); Carbon Dioxide 22 mmol/L (22-32); Chloride 94 mmol/L (98-107); Estimated Glomerular Filt Rate > 60.0 mL/min (>60); Globulin 3.9 g/dL (1.7-4.1); Glucose 126 mg/dL (80-110); HEMOLYSIS < 15 (0-50); Potassium 4.6 mmol/L (3.4-5.1); Sodium 128 mmol/L (137-145)
[2018-03-15 12:25] LABS: Add Manual Diff / Slide Review NO; Basophils Percent Auto 1.2 % (0-2); Eosinophils Percent Auto 1.4 % (2-4); Hematocrit 38.4 % (41-53); Hemoglobin 13.1 g/dL (13.5-17.5); Lymphocytes Percent Auto 12.4 % (25-40); Mean Corpuscular Hemoglobin 38.3 PG (26-34); Mean Corpuscular Volume 112.5 fL (80-100); Monocytes Percent Auto 16.8 % (3-14); Neutrophils Absolute Auto 6400 /uL (3000-5900); Neutrophils Percent Auto 68.2 % (50-75); Platelet Count 424 X10^3/uL (150-400); Red Blood Cell Count 3.42 X10^6/uL (4.5-5.9); Red Cell Distribution Width 13.7 % (11.6-14.8); White Blood Cell Count 9.4 X10^3/uL (4.5-11.0)
[2018-03-15 12:44] LABS: Burr Cells 2+; Macrocytosis 3+
== END ==
PROVIDERS: PCP Family Medicine; Visit Provider Internal Medicine Transplant Hepatology
DX: K82.8 Other specified diseases of gallbladder (principal); E27.9 Disorder of adrenal gland, unspecified; E87.1 Hypo-osmolality and hyponatremia; E83.19 Other disorders of iron metabolism; K70.31 Alcoholic cirrhosis of liver with ascites; R79.89 Other specified abnormal findings of blood chemistry
CPT/HCPCS: 36415; 74170; 80053; 81256; 85025; 85610; Q9967

== ENCOUNTER 2018-05-10 13:46 | Emergency (ER) | payer MEDICARE, SELFPAY ==
[2018-05-10 13:49] VITALS: BP 111/67; PULSE 89; RESP 16; TEMP 36.1; O2SAT 98; BMI 25.4
--- NOTE | 2018-05-10 16:35 | ED.ABDPAIN ---
HPI - Abdominal Pain General Chief Complaint: Abdominal Pain Stated Complaint: Stomach swelling Time Seen by Provider: 05/10/18 16:33 Source: patient Mode of arrival: ambulatory Limitations: no limitations History of Present Illness HPI narrative: Patient is a 72-year-old male with known alcoholic liver cirrhosis and ascites. He gets frequent paracentesis. He patient states that his last paracentesis was 3 weeks ago down at [place]. He is here today because he states that his primary doctor over at [facility] was unable to get an outpatient paracentesis scheduled and [place] in [place]. He states that he is not having any abdominal pain. No fevers. No urinary symptoms. He does feel like his abdomen is distended however when asked he states he feels like he does not need a paracentesis today. His then arrived at bedside who stated that yes his abdomen is distended he has been complaining of pain and a paracentesis was recommended by their primary doctor. They were told to come to the emergency department since they could not get this set up as an outpatient Related Data Home Medications Medication Instructions Recorded Confirmed No Known Home Medications 05/10/18 05/10/18 Allergies Allergy/AdvReac Type Severity Reaction Status Date / Time codeine Allergy Intermediate Wheezing Verified 05/10/18 13:49 Review of Systems Constitutional Denies fever(s) and Denies headache(s) ENT Ears, Nose, Mouth, and Throat: Denies dizziness and Denies headache(s) Cardiovascular Denies chest pain, Denies syncope and Denies dyspnea Respiratory Denies dyspnea Gastrointestinal Gastrointestinal: Denies abdominal pain, Reports bloating, Denies diarrhea, Denies nausea and Denies vomiting Comments: Abdominal distention Musculoskeletal Denies myalgias and Denies arthralgias Integumentary/Breasts Denies lesions and Denies rash Neurologic Denies dizziness, Denies syncope and Denies headache(s) Hematologic/Lymphatic Denies easy bleeding and Denies easy bruising [facility] Medical History Alcoholism (Acute) Ascites (Acute) Diverticulitis (Acute) High cholesterol (Acute) Hypertension (Acute) Melanoma (Acute) Osteoporosis (Acute) Pancreatic cancer (Acute) Prostate CA (Acute) Social History Smoking Status: Former smoker Exam Initial Vital Signs Initial Vital Signs: Vital Signs Temperature 97.0 F L 05/10/18 13:49 Pulse Rate 89 05/10/18 13:49 Respiratory Rate 16 05/10/18 13:49 Blood Pressure 111/67 05/10/18 13:49 Pulse Oximetry 98 05/10/18 13:49 Const General: cooperative, well groomed and No acute distress Orientation: alert, awake and oriented x3 HENMT Head: normal to inspection and normocephalic Eyes Sclera: scleral abnormality bilaterally (Jaundice) Pupils: PERRL Resp Effort & Inspection: normal respiratory effort Auscultation: clear to auscultation bilaterally Cardio Rate: regular rate Rhythm: regular rhythm GI Other: Abdomen is distended and somewhat taut however is soft. No pain with palpation. Skin Lesions: no lesions Rashes: no rashes Neuro General: alert and awake Extrem General: normal to inspection and capillary refill normal Psych Appearance: grossly normal and well kempt Procedures Paracentesis Time Out Performed: Yes Indication: Ascites Procedure: therapeutic paracentesis Location: RLQ Local Anesthetic: lidocaine 1% Amount of anesthesia used (mL): 6 Bedside Ultrasound Used: yes, Ascites confirmed and location marked Preparation: Blade used to make isaac in skin Amount of fluid obtained (mL): 3,000 Fluid: clear Post Procedure Exam: awake, alert, normal BP and normal HR Patient Tolerated Procedure: Well and No complications Complications: none Course Vital Signs - 8 hr 05/10/18 13:49 05/10/18 17:05 Temperature 97.0 F L Pulse Rate 89 88 Respiratory Rate 16 17 Blood Pressure 111/67 Blood Pressure [Left Arm] 124/74 Pulse Oximetry 98 98 MDM - Abdominal Pain MDM Narrative Medical decision making narrative: Paracentesis performed today as described above. Patient tolerated the procedure well. 3 L of clear straw-colored fluid was removed. We stop the 3 L secondary to not giving him albumin. He had no drop in his blood pressure. We did discuss the risks and benefits of the paracentesis prior to performing this. The patient expressed understanding and agreement with the. I discussed the case with the patient and his . I informed them that it would be most prudent for them to discuss with her primary doctor getting scheduled for routine paracentesis to avoid situations such as this for that to come to the emergency department to have this completed. The patient is expressed understanding and agreement with this. They are given return precautions. I have low concern for infection. Patient is under the care of the liver transplant team down at [facility]. Discharge Plan Departure Patient Disposition: Home Clinical Impression: Ascites Discharge Date/Time: 05/10/18 17:49 Interventions: ED Discharge Assessment Last Done: 05/10/18 17:49 Instructions: Ascites, DI for Abdominal Paracentesis Activity Restrictions/Additional Instructions: Make sure you contact your primary care doctor to discuss the possibility of setting up for routine paracentesis. Return to the emergency department for any new or worsening symptoms. Prescriptions: No Action No Known Home Medications RF: 0
[2018-05-10 17:05] VITALS: BP 124/74; PULSE 88; RESP 17; O2SAT 98
== END 2018-05-10 17:49 | disposition home or self-care (01) ==
PROVIDERS: Emergency Provider Emergency Medicine; PCP Family Medicine
DX: R18.8 Other ascites (principal)
CPT/HCPCS: 36415; 49083; 99282; 99285

== ENCOUNTER → 2018-06-14 12:06 | Outpatient (CLI) | payer MEDICARE, SELFPAY ==
--- NOTE | 2018-06-14 12:11 | DI.US.S_ITS ---
PROCEDURE: US PARACENTESIS INDICATIONS: ASCITIS TECHNIQUE: The indications, alternatives, benefits, risks, and complications of the procedure were explained to the patient. Written informed consent was obtained and placed in the chart. The abdomen and pelvis were examined sonographically, and an appropriate site was chosen for paracentesis. The skin was prepared and draped in the usual sterile fashion, and 1% lidocaine was infiltrated from the skin down through the peritoneal surface. A 19-gauge catheter-covered needle was then introduced into the peritoneal space, the catheter was advanced and the needle was withdrawn, and thereafter peritoneal fluid was withdrawn. The catheter was then removed and a dressing was applied. The fluid was discarded if the clinician did not order diagnostic testing of the fluid. COMPARISON: [facility], , PARACENTESIS, 03/02/2018, 13:34. FINDINGS: Access site: Midline Needle: One-Step centesis catheter with introducer needle. Fluid volume and description: 6000 cc of serous fluid Fluid sent for diagnostic testing: As requested Medications: 1% lidocaine for local anaesthesia. Complications: None. IMPRESSION: Successful ultrasound-guided paracentesis. Dictated by: Slick Guzman M.D. on 06/14/2018 at 15:30 Approved by: Slick Guzman M.D. on 06/14/2018 at 15:31
[2018-06-14 12:29] LABS: INR 1.6 (0.9-1.3); Prothrombin Time 17.6 SECONDS (10.1-12.7)
[2018-06-14 12:43] LABS: Hematocrit 25.1 % (41-53); Hemoglobin 8.8 g/dL (13.5-17.5); Mean Corpuscular HGB Conc 35.1 % (30-36); Mean Corpuscular Hemoglobin 40.6 PG (26-34); Mean Corpuscular Volume 115.8 fL (80-100); Platelet Count 236 X10^3/uL (150-400); White Blood Cell Count 8.4 X10^3/uL (4.5-11.0)
[2018-06-14 12:44] LABS: Add Manual Diff / Slide Review YES
[2018-06-14 12:45] LABS: Red Blood Cell Count 2.17 X10^6/uL (4.5-5.9)
[2018-06-14 12:53] LABS: Anisocytosis 2+; Burr Cells 2+; Hypochromasia 2+; Neutrophils Absolute Manual 5628 /uL (3000-5900); Target Cells 1+; Total Cells Counted 100
[2018-06-14 15:17] LABS: Body Fluid Tot Nucleated Cells 105 /uL
[2018-06-14 15:18] LABS: Body Fluid Red Blood Cells 164 /uL
[2018-06-14 15:43] LABS: Body Fluid Appearance SLIGHTLY CLOUDY; Body Fluid Clotted? NO CLOTS PRESENT; Body Fluid Color YELLOW; Eosinophils Body Fluid 0 %; Mononuclear WBC Body Fluid 65 %; Other Cells Body Fluid 0 %; Polynuclear WBC Body Fluid 35 %
== END ==
PROVIDERS: PCP Family Medicine; Visit Provider Nurse Practitioner Family
DX: Z01.812 Encounter for preprocedural laboratory examination (principal); K70.31 Alcoholic cirrhosis of liver with ascites; D69.59 Other secondary thrombocytopenia
CPT/HCPCS: 36415; 49083; 85025; 85610; 87205; 89051

== ENCOUNTER → 2018-07-17 10:37 | Outpatient (CLI) | payer MEDICARE, SELFPAY ==
--- NOTE | 2018-07-17 | DI.US.S_ITS ---
PROCEDURE: US PARACENTESIS INDICATIONS: ASCITES/ALCOHOLIC CIRRHOSIS TECHNIQUE: The indications, alternatives, benefits, risks, and complications of the procedure were explained to the patient. Written informed consent was obtained and placed in the chart. The abdomen and pelvis were examined sonographically, and an appropriate site was chosen for paracentesis. The skin was prepared and draped in the usual sterile fashion, and 1% lidocaine was infiltrated from the skin down through the peritoneal surface. A 19-gauge catheter-covered needle was then introduced into the peritoneal space, the catheter was advanced and the needle was withdrawn, and thereafter peritoneal fluid was withdrawn. The catheter was then removed and a dressing was applied. The fluid was discarded if the clinician did not order diagnostic testing of the fluid. COMPARISON: [facility], , PARACENTESIS, 06/14/2018, 13:20. FINDINGS: Access site: Mid abdomen just below the level of umbilicus. Needle: One-Step centesis catheter with introducer needle. Fluid volume and description: 5.7 L of yellowish green fluid. Fluid sent for diagnostic testing: Yes Medications: 1% lidocaine for local anaesthesia. Complications: None. IMPRESSION: Successful ultrasound-guided paracentesis. Dictated by: Jose Angel Arevalo M.D. on 07/17/2018 at 12:01 Approved by: Jose Angel Arevalo M.D. on 07/17/2018 at 12:02
[2018-07-17 13:48] LABS: Body Fluid Tot Nucleated Cells 119 /uL
[2018-07-17 13:49] LABS: Body Fluid Red Blood Cells 236 /uL
[2018-07-17 16:31] LABS: Body Fluid Appearance CLEAR; Body Fluid Color YELLOW
[2018-07-17 16:32] LABS: Body Fluid Clotted? NO CLOTS PRESENT; Mononuclear WBC Body Fluid 59 %; Polynuclear WBC Body Fluid 41 %
== END ==
PROVIDERS: PCP Family Medicine; Visit Provider Nurse Practitioner Family
DX: K70.31 Alcoholic cirrhosis of liver with ascites (principal)
CPT/HCPCS: 49083; 87205; 89051